=== PATIENT | male | born 1965 | race African-American/Black ===

== ENCOUNTER 2022-02-18 07:39 | Emergency (ER) | payer BC ==
[~2022-02-18] VITALS: Ht 190.5 cm; Wt 122.5 kg
[2022-02-18 07:46] VITALS: BP_SYST 145
--- NOTE | 2022-02-18 08:00 | NUR ---
Pt brought by self ,A&Ox4, pt presents to ER with diffuse abdominal pain, denies N/V/diarrhea and constipation, skin pink and warm, cap refill <3.
[2022-02-18] MEDS ORDERED: FAMOTIDINE 20 MG TABLET PO ONE (08:15)
[2022-02-18] MEDS ORDERED: MAG-AL HYDROX/SIMETH 30 ML UDC PO ONE (08:15)
--- NOTE | 2022-02-18 08:30 | NUR ---
Dr Powers evaluating patient at bedside
[2022-02-18 08:43] LABS: EOSINOPHILS # (AUTO) 0.1 K/uL (0.0-0.4); EOSINOPHILS % (AUTO) 2.3 % (0.0-4.0); HEMATOCRIT 45.6 % (36-54); LYMPHOCYTES # (AUTO) 1.5 K/uL (1.0-5.5); LYMPHOCYTES % (AUTO) 33.4 % (20.5-51.5); MEAN CORPUSCULAR HEMOGLOBIN 29 pg (27-31); MEAN CORPUSCULAR HGB CONC 33 % (32-36); MEAN CORPUSCULAR VOLUME 88 fL (79.0-98.0); MONOCYTES # (AUTO) 0.5 K/uL (0.0-1.0); MONOCYTES % (AUTO) 11.7 % (1.7-9.3); NEUTROPHILS # (AUTO) 2.3 K/uL (1.8-7.7); NEUTROPHILS % (AUTO) 51.6 % (40.0-70.0); PLATELET COUNT (AUTO) 145 K/uL (130-430); RED BLOOD CELL COUNT(AUTO) 5.21 MIL/uL (4.2-6.2); RED CELL DISTRIBUTION WIDTH 15.2 % (9.0-15.0); WHITE BLOOD COUNT (AUTO) 4.5 K/uL (4.8-10.8)
[2022-02-18 09:03] LABS: CALCIUM 8.9 mg/dL (8.4-11.0); CREATININE 1.38 mg/dL (0.55-1.30)
[2022-02-18 09:09] LABS: ALBUMIN 3.7 g/dL (3.4-4.8); TOTAL BILIRUBIN 0.6 mg/dL (0.0-1.0)
[2022-02-18] MEDS ORDERED: FAMO20TA8 PO (09:46)
[2022-02-18] MEDS ORDERED: SUCR1TAB2 PO (09:46)
[2022-02-18 10:12] VITALS: BP_SYST 145
--- NOTE | 2022-02-18 10:12 | NUR ---
Patient given written and verbal discharge instructions and verbalizes understanding. ER MD discussed with patient the results and treatment provided. Patient in stable condition. ID arm band removed. Rx of Pepcid and Carafate given. Patient educated on pain management and to follow up with PMD. Pain Scale 2/10. Opportunity for questions provided and answered. Medication side effect fact sheet provided.
== END 2022-02-18 10:12 | disposition home or self-care (01) ==
LOC: SED 07:39
DX: R10.13 Epigastric pain (principal); Z72.0 Tobacco use; Z79.899 Other long term (current) drug therapy
CPT/HCPCS: 36415; 76376; 80053; 83690; 85025; 99284